=== PATIENT | female | born 1995 | race Caucasian/White ===

== ENCOUNTER 2017-04-11 12:20 | Emergency (ER) | payer OTHER, MEDICAID ==
[~2017-04-11] VITALS: Ht 162.6 cm; Wt 99.8 kg
[~2017-04-11 12:20] MED LIST: DEPO-PROVER150 MG/M1 IM; IBUPROFEN200 M1 PO
[2017-04-11] MEDS ORDERED: CYCLOBENZAPRINE5 MG PO (12:45)
[2017-04-11 13:48] VITALS: BP 105/67
== END 2017-04-11 13:49 | disposition home or self-care (01) ==
LOC: M.ERS 12:20
DX: M53.3 Sacrococcygeal disorders, not elsewhere classified (principal)

== ENCOUNTER 2018-10-28 16:22 | Emergency (ER) | payer OTHER, MEDICAID ==
[~2018-10-28] VITALS: Ht 162.6 cm; Wt 104.3 kg
[~2018-10-28 16:22] MED LIST changes: +CYCLOBENZAPRINE5 MG PO
[2018-10-28 18:03] VITALS: BP 136/69
== END 2018-10-28 18:05 | disposition home or self-care (01) ==
LOC: M.ERS 16:22
DX: S93.492A Sprain of other ligament of left ankle, initial encounter (principal); X50.0XXA Overexertion from strenuous movement or load, initial encounter; Y92.89 Other specified places as the place of occurrence of the external cause; Y93.89 Activity, other specified; Y99.8 Other external cause status

== ENCOUNTER 2020-12-16 13:26 | Emergency (ER) | payer OTHER, MEDICAID ==
[~2020-12-16] VITALS: Ht 165.1 cm; Wt 79.4 kg
[2020-12-16 13:46] LABS: URINE BILIRUBIN NEGATIVE (Negative); URINE BLOOD NEGATIVE (Negative); URINE CLARITY CLEAR; URINE COLOR YELLOW; URINE GLUCOSE-RANDOM NEGATIVE (Negative); URINE KETONES NEGATIVE (Negative); URINE LEUKOCYTES-REFLEX NEGATIVE (Negative); URINE NITRITE-REFLEX NEGATIVE (Negative); URINE PROTEIN NEGATIVE (Negative); URINE SPECIFIC GRAVITY >= 1.030 (1.005-1.030)
[2020-12-16 14:19] LABS: ABSOLUTE BASOPHILS 0.1 thou/uL (0.0-0.2); ABSOLUTE EOSINOPHILS 0.1 thou/uL (0.0-0.7); ABSOLUTE LYMPHOCYTES 2.3 thou/uL (0.8-5.3); ABSOLUTE MONOCYTES 0.5 thou/uL (0.0-1.2); ABSOLUTE NEUTROPHILS 3.2 thou/uL (1.6-8.1); BASOPHILS 0.9 %; EOSINOPHILS 1.4 %; HEMOGLOBIN 12.6 gm/dL (12.0-15.0); MCH 31.5 pg (26.0-34.0); MCHC 33.3 g/dL (28.0-37.0); MCV 94.6 fL (80.0-100.0); MPV 9.2 fl. (7.2-11.1); NUCLEATED RBCS 0 /100WBC; PLATELET COUNT* 216 thou/uL (150-400); POLYS 52.7 %; RBC 4.01 mil/uL (4.20-5.00); RDW-CV 14.3 % (10.5-14.5); WBC 6.2 thou/uL (4.0-11.0)
[2020-12-16 14:25] LABS: CALCIUM 8.5 mg/dL (8.5-10.1); CREATININE 0.8 mg/dL (0.6-1.3)
[2020-12-16] MEDS ORDERED: FLEXERIL PO (14:35)
[2020-12-16 14:49] VITALS: BP 118/56
== END 2020-12-16 14:49 | disposition home or self-care (01) ==
LOC: M.ERS 13:26
PROVIDERS: Nurse Practitioner Psychiatric/Mental Health
DX: R10.9 Unspecified abdominal pain (principal); M54.9 Dorsalgia, unspecified; Z87.442 Personal history of urinary calculi